=== PATIENT | male | born 1960 | race Two or more races ===

== ENCOUNTER 2020-11-11 15:10 | Emergency (ER) | payer OTHER ==
[~2020-11-11] VITALS: Ht 170.2 cm; Wt 84.1 kg
[2020-11-11 15:20] VITALS: BP 144/98
--- NOTE | 2020-11-11 15:25 | NUR ---
WAS ALERTED ABOUT TRAUMA LEVEL 2 1521
[2020-11-11] MEDS ORDERED: morphine 4 MG/ML inj SYRINge IM ONE (15:30)
[2020-11-11] MEDS ORDERED: orphenadrine citrate 60mg/2ml inj. IM ONE (16:40)
[2020-11-11] MEDS ORDERED: HYDROcodone/acetaminophen 10/325mg tab PO ONE (16:40)
[2020-11-11] MEDS ORDERED: ORPH100T2 PO (16:45)
[2020-11-11] MEDS ORDERED: HYDR-3972 PO ×2 (16:45→18:07)
== END 2020-11-11 18:10 | disposition home or self-care (01) ==
LOC: ER 15:11
DX: S09.90XA Unspecified injury of head, initial encounter (principal); S13.9XXA Sprain of joints and ligaments of unspecified parts of neck, initial encounter; M54.2 Cervicalgia; Z88.6 Allergy status to analgesic agent; Z88.8 Allergy status to other drugs, medicaments and biological substances; Z79.899 Other long term (current) drug therapy; W10.9XXA Fall (on) (from) unspecified stairs and steps, initial encounter; Y93.89 Activity, other specified; Y92.89 Other specified places as the place of occurrence of the external cause; Y99.8 Other external cause status
CPT/HCPCS: 70450; 72125; 96372; 99285; J2270; J2360